=== PATIENT | female | born 1960 | race Caucasian/White ===

== ENCOUNTER 2023-02-22 01:49 | Inpatient (IN) | payer OTHER ==
[~2023-02-22] VITALS: Ht 144.8 cm; Wt 81.8 kg
[2023-02-22] MEDS ORDERED: HYDR25TA2 PO (01:57)
[2023-02-22] MEDS ORDERED: AMLO-257 PO (01:57)
[2023-02-22] MEDS ORDERED: LOSA-381 PO (01:57)
[2023-02-22] MEDS ORDERED: ATOR20TA PO (01:57)
[2023-02-22] MEDS ORDERED: METF-1211 PO (01:57)
[2023-02-22] MEDS ORDERED: ASPI-1444 PO (01:57)
[2023-02-22] MEDS ORDERED: CHOL200059 PO (01:57)
[2023-02-22] MEDS ORDERED: KETOROLAC TROMETHAMINE 30 MG/ML VIAL IVP ONE (02:30)
[2023-02-22] MEDS ORDERED: SODIUM CHLORIDE 0.9% 1,000 ML IV ONE (02:30)
[2023-02-22 02:37] LABS: APPEARANCE,URINE HAZY (CLEAR); BILIRUBIN,URINE NEGATIVE (NEGATIVE); GLUCOSE, URINE (UA) 70-100 mg/dL (NEGATIVE); KETONES,URINE TRACE mg/dL (NEGATIVE); LEUKOCYTE ESTERASE ,URINE SMALL (NEGATIVE); NITRATE,URINE NEGATIVE (NEGATIVE); OCCULT BLOOD,URINE NEGATIVE (NEGATIVE); PH,URINE 6.5 (5.0-8.0); PROTEIN,URINE NEGATIVE (NEGATIVE); SPECIFIC GRAVITIY, URINE 1.015 (1.003-1.030); UROBILINOGEN,URINE <=1.0 mg/dL (<=1.0)
[2023-02-22] MEDS ORDERED: ONDANSETRON HCL 4 MG/2 ML VIAL IVP ONE ×2 (02:45→08:45)
[2023-02-22 02:51] LABS: SQUAMOUS EPITHELIAL CELL,UR Few /LPF (None Seen)
[2023-02-22 02:52] LABS: BACTERIA,URINE None Seen /HPF (None Seen); RBC,URINE None Seen /HPF (0-2)
[2023-02-22 02:53] LABS: BASOPHILS % (AUTO) 0.3 % (0.0-2.0); EOSINOPHILS % (AUTO) 0.3 % (1.0-6.0); HEMATOCRIT 40.8 % (36-46); HEMOGLOBIN 14.2 g/dL (12.0-16.0); LYMPHOCYTES # (AUTO) 1.6 K/uL (1.0-4.8); LYMPHOCYTES % (AUTO) 14.7 % (22.0-44.0); MEAN CORPUSCULAR HEMOGLOBIN 30.9 pg (26.0-34.0); MEAN CORPUSCULAR HGB CONC 34.9 G/dL (31.0-37.0); MEAN CORPUSCULAR VOLUME 89 fL (80-100); MONOCYTES # (AUTO) 0.5 K/uL (0.1-1.0); MONOCYTES % (AUTO) 4.7 % (2.0-9.0); NEUTROPHILS # (AUTO) 8.5 K/uL (1.8-7.7); PLATELET COUNT (AUTO) 259 K/uL (150-450); RED CELL DISTRIBUTION WIDTH 13.8 % (11.5-14.5)
[2023-02-22 02:56] LABS: ANION GAP 14 mmol/L (8-16); CALCIUM, TOTAL 9.8 mg/dL (8.8-10.5); CARBON DIOXIDE 26 mmol/L (22-29); CHLORIDE 98 mmol/L (98-107); CREATININE 0.84 mg/dL (0.60-1.30); GLOMERULAR FILTR. RATE CALC > 60 mL/min (>60); GLUCOSE,RANDOM 205 mg/dL (70-110); POTASSIUM 3.3 mmol/L (3.5-5.1); SODIUM SERUM 138 mmol/L (136-145)
[2023-02-22 03:01] LABS: ALANINE AMINOTRANSFERASE 43 U/L (12-78); ALBUMIN 4.7 g/dL (3.4-5.0); ALKALINE PHOSPHATASE 89 U/L (46-116); ASPARTATE AMINOTRANSFERASE 26 U/L (15-37); BILIRUBIN,TOTAL 0.7 mg/dL (0.1-1.0); LIPASE 108 U/L (73-393); TOTAL PROTEIN, SERUM 8.3 g/dL (6.4-8.2)
[2023-02-22] MEDS ORDERED: POTASSIUM CHLORIDE 20 MEQ ER TABLET PO ONE (06:00)
[2023-02-22] MEDS ORDERED: MORPHINE SULFATE 2 MG/ML SYRINGE IVP ONE ×2 (08:45→10:45)
[2023-02-22] MEDS ORDERED: PIPERACILLIN/TAZO 3.375 GM/D5W 50 ML IV ONE (10:45)
[2023-02-22] MEDS ORDERED: DEXTROSE 50%-WATER 25 GM/50 ML SYRINGE IVP PRN (11:00)
[2023-02-22] MEDS ORDERED: POTASSIUM CHL 10 MEQ/WATER 50 ML IV PRN (11:00)
[2023-02-22] MEDS ORDERED: MORPHINE SULFATE 2 MG/ML SYRINGE IVP PRN ×3 (11:00→13:00)
[2023-02-22] MEDS ORDERED: POTASSIUM CHLORIDE 20 MEQ ER TABLET PO PRN (11:00)
[2023-02-22] MEDS ORDERED: SODIUM CHLORIDE 0.9% 1,000 ML IV SCH (11:00)
[2023-02-22] MEDS ORDERED: ACETAMINOPHEN 325 MG TABLET PO PRN (11:00)
[2023-02-22] MEDS ORDERED: ONDANSETRON HCL 4 MG/2 ML VIAL IVP PRN ×3 (11:00→13:00)
[2023-02-22] MEDS ORDERED: MAGNESIUM HYDROXIDE SUSPENSION 30 ML UDCUP PO PRN (11:00)
[2023-02-22] MEDS ORDERED: SODIUM CHLORIDE 0.9% 1,000 ML ONE ×2 (11:02→12:07)
[2023-02-22] MEDS ORDERED: HYDROmorphone HCL 2 MG/ML SYRINGE IVP PRN (11:15)
[2023-02-22] MEDS ORDERED: FentaNYL CITRATE PF 100 MCG/2 ML VIAL IVP PRN (11:15)
[2023-02-22] MEDS ORDERED: BUPIVACAINE HCL/PF 0.5% 30 ML VIAL ONE (12:06)
[2023-02-22] MEDS ORDERED: LIDOCAINE 2%/EPI 1:200,000/PF 20 ML VIAL ONE (12:06)
[2023-02-22] MEDS ORDERED: ACETAMINOPHEN 500 MG TABLET PO PRN ×2 (13:00)
[2023-02-22] MEDS ORDERED: HYDROCODONE/ACETAMINOPHEN 5-325 MG TABLET PO PRN ×2 (13:00)
[2023-02-22] MEDS ORDERED: BUPIVACAINE HCL 0.25% 50 ML VIAL SQ ONE (13:13)
[2023-02-22] MEDS ORDERED: LIDOCAINE 1%/EPI 1:200,000/PF 10 ML VIAL SQ ONE (13:14)
[2023-02-22 13:51] VITALS: BP 121/68; PULSE 93; RESP 18; TEMP 98.2
[2023-02-22] MEDS: RINGERS SOLUTION,LACTATED 1,000 ML IV SCH (16:04)
[2023-02-22] MEDS: MetroNIDAZOLE 500 MG/NACL 100 ML IV SCH (16:32)
[2023-02-22 17:09] VITALS: PULSE 85; RESP 16; O2SAT 94
[2023-02-22] MEDS: INSULIN LISPRO 100 UNITS/ML SQ PRN ×2 (17:35→20:57)
[2023-02-22] MEDS ORDERED: PIPERACILLIN/TAZO 3.375 GM/D5W 50 ML IV SCH (18:00)
[2023-02-22] MEDS: CeFAZolin 1 GM/DEXTROSE 50 ML IV SCH ×2 (18:37→21:00)
[2023-02-22] MEDS ORDERED: SODIUM CHLORIDE 0.9% 500 ML IV ONE (18:42)
[2023-02-22 19:08] VITALS: BP 120/75; PULSE 101; RESP 18; TEMP 100.1
[2023-02-22 19:50] VITALS: TEMP 99.4
[2023-02-22] MEDS: DOCUSATE SODIUM 100 MG CAPSULE PO SCH (19:52)
[2023-02-22] MEDS: OXYGEN THERAPY IH SCH (19:56)
[2023-02-22 22:41] LABS: GLUCOMETER DEV NAME(LOC) 6S.2; GLUCOSE,POINT OF CARE 200 MG/DL (70-110)
[2023-02-22 22:41] LABS: GLUCOMETER DEV NAME(LOC) 6S.2; GLUCOSE,POINT OF CARE 155 MG/DL (70-110)
[2023-02-23] MEDS: MetroNIDAZOLE 500 MG/NACL 100 ML IV SCH
[2023-02-23] MEDS ORDERED: CeFAZolin 1 GM/DEXTROSE 50 ML IV ONE (02:00)
[2023-02-23 04:41] VITALS: BP 100/59; PULSE 82; RESP 18; TEMP 99.5
[2023-02-23] MEDS: IBUPROFEN 800 MG TABLET PO PRN ×2 (05:59→08:38)
[2023-02-23 07:56] LABS: GLUCOMETER DEV NAME(LOC) 6S.1B; GLUCOSE,POINT OF CARE 129 MG/DL (70-110)
[2023-02-23] MEDS: OXYGEN THERAPY IH SCH (08:00)
[2023-02-23 08:01] VITALS: BP 95/59; PULSE 75; RESP 20; TEMP 98.4
[2023-02-23] MEDS: DOCUSATE SODIUM 100 MG CAPSULE PO SCH (08:38)
[2023-02-23] MEDS: RINGERS SOLUTION,LACTATED 1,000 ML IV SCH (08:38)
[2023-02-23] MEDS ORDERED: PANTOPRAZOLE SODIUM 40 MG/VIAL IVP SCH (09:00)
[2023-02-23 15:56] LABS: GLUCOMETER DEV NAME(LOC) 6S.1B; GLUCOSE,POINT OF CARE 118 MG/DL (70-110)
[2023-02-23 16:16] VITALS: BP 96/59; PULSE 76; RESP 20; TEMP 98.8
== END 2023-02-23 16:35 | disposition home or self-care (01) | DRG 263 ==
LOC: EMS 01:49 → AHU 10:50 → 6N 13:29
PROVIDERS: ADMIT Internal Medicine; ATTEND Internal Medicine
PROC: 0FT44ZZ Resection of Gallbladder, Percutaneous Endoscopic Approach (ICD-10-PCS; principal; 2023-02-22 12:30)
DX: K81.0 Acute cholecystitis (principal); E11.9 Type 2 diabetes mellitus without complications; E66.01 Morbid (severe) obesity due to excess calories; E78.00 Pure hypercholesterolemia, unspecified; I10 Essential (primary) hypertension; K82.8 Other specified diseases of gallbladder; Z68.39 Body mass index [BMI] 39.0-39.9, adult; Z79.82 Long term (current) use of aspirin; Z79.84 Long term (current) use of oral hypoglycemic drugs; Z79.899 Other long term (current) drug therapy; Z83.3 Family history of diabetes mellitus
CPT/HCPCS: 74176; 76705; 80053; 81001; 82962; 83690; 84132; 85025; 93005; 99285; C9113; G0238; J0690; J1885; J2270; J2405; J2543; J3490; J7030; J7040; J7120